=== PATIENT | female | born 1980 | race Caucasian/White ===

== ENCOUNTER → 2018-07-15 | Outpatient (REF) | payer OTHER | LOC: M SFHCLERA 20:52 | PROVIDERS: ATTEND Physician Assistant | DX: J02.9 Acute pharyngitis, unspecified (principal) ==

== ENCOUNTER 2024-09-28 06:50 | Day surgery (SDC) | payer OTHER ==
[~2024-09-28] VITALS: Ht 167.6 cm; Wt 88.0 kg
[~2024-09-28 06:50] MED LIST: FLUO-290 PO
[2024-09-28] MEDS ORDERED: propofoL 200 MG/20 ML VIAL As Ordered ONE (07:42)
[2024-09-28] MEDS ORDERED: LIDOCAINE 2% 100MG/5ML SDV (FOR ANES.) As Ordered ONE (07:42)
[2024-09-28 08:46] VITALS: BP 111/58; O2SAT 99
== END 2024-09-28 08:59 | disposition home or self-care (01) ==
LOC: M OPP 06:50
PROVIDERS: ATTEND Surgery
DX: Z12.11 Encounter for screening for malignant neoplasm of colon (principal); Z88.2 Allergy status to sulfonamides; Z88.8 Allergy status to other drugs, medicaments and biological substances; Z79.899 Other long term (current) drug therapy